=== PATIENT | female | born 1975 | race Caucasian/White ===

== ENCOUNTER 2017-03-26 10:21 | Emergency (ER) | payer OTHER ==
[~2017-03-26] VITALS: Ht 160 cm; Wt 49.0 kg
[2017-03-26 10:22] VITALS: Ht 160 cm; Wt 49.0 kg
[2017-03-26] MEDS ORDERED: AZIT250T94 PO (10:58)
[2017-03-26] MEDS ORDERED: PHEN177S43 MT (10:58)
[2017-03-26] MEDS ORDERED: TYL500 PO (10:58)
--- NOTE | 2017-03-26 11:09 | ERD ---
ER Documentation Chief Complaint Date/Time DATE: 03/26/17 TIME: 11:03 Chief Complaint sore throat , ear pain x 3 days HPI This is a 41-year-old female presents to the ER with a sore throat, ear pain, cough for the last 3 days. Patient states that pain is worse whenever she swallows. Cough is mild and dry. Patient describes a sore throat as a sharp stabbing pain. She denies any difficulty in breathing or swallowing. Patient has not had any fevers or chills. There are no sick contacts at home. ROS 12 point review of systems was done, all negative except per HPI. Medications Home Meds Active Scripts Phenol* (Chloraseptic* Altha) 177 Ml Altha.pump, 2 SPRAY MT Q2H Y for SORE THROAT for 3 Days, BOTTLE Prov:CARITO SHULTZ 03/26/17 Acetaminophen* (Tylenol*) 500 Mg Tab, 500 MG PO Q4H Y for MILD PAIN LEVEL 1-3 for 5 Days, TAB Prov:CARITO SHULTZ 03/26/17 Azithromycin* (Zithromax*) 250 Mg Tablet, 250 MG PO .ZPACK DIRECTED, #6 TAB TAKE 500 MG (2 TABS) THE FIRST DAY THEN 250 MG (1 TAB) DAYS 2-5 Prov:CARITO SHULTZ 03/26/17 Physical Exam Vitals Vital Signs Date Time Temp Pulse Resp B/P Pulse Ox O2 Delivery O2 Flow Rate FiO2 03/26/17 10:22 98.2 88 18 128/61 98 Physical Exam GENERAL: The patient is well-developed, well-nourished, in no acute distress. NECK: Cervical spine is non tender with no step off. Supple, no nuchal rigidity HEENT: Atraumatic. Pupils equal, round and reactive to light. Extraocular muscles are grossly intact. Conjunctivae pink, no discharge. Bilateral tympanic membranes are clear with no evidence of erythema, effusion or dulling of the light reflex. Tonsilar erythema with no exudates or uvular deviation. Clear rhinorrhea. RESPIRATORY: Clear to auscultation bilaterally. There are no rales, wheezes or rhonchi. HEART: Regular rate and rhythm. No murmurs, clicks, rubs or gallops. EXTREMITIES: No clubbing or cyanosis. Full range of motion. Grossly neurovascularly intact. NEUROLOGIC: Alert and oriented. Cranial nerves II through XII are intact. SKIN: There is no rash. The skin is warm and dry. Procedures/MDM Differential diagnosis includes but is not limited to; Viral URI, allergic rhinitis, bronchitis, pertussis,pneumonia, strep throat, retropharyngeal abscess , peritonsillar abscess. Patient will be sent home with azithromycin, Chloraseptic spray, Tylenol. I explained to patient this is likely viral in etiology, and that she should wait to take antibiotics. Patient however is insistent that she is getting worse and not better. Patient will be sent home with azithromycin, only to be used if symptoms continue for more than a week. Patient will also be sent home with Tylenol and Chloraseptic. Patient needs to follow-up with her primary care doctor within 1-2 days or return to ER sooner if symptoms worsen. My medical decision making shared with patient she understands and agrees with plan. Departure Diagnosis: Primary Impression: Pharyngitis Condition: Stable Patient Instructions: Pharyngitis, Strep (Presumed) Additional Instructions: Call your primary care doctor TOMORROW for an appointment during the next 1-2 days.See the doctor sooner or return here if your condition worsens before your appointment time. CARITO SHULTZ March 26, 2017 11:09
== END 2017-03-26 11:26 | disposition home or self-care (01) ==
LOC: FTE 10:21
DX: J02.9 Acute pharyngitis, unspecified (principal)
CPT/HCPCS: 99283